=== PATIENT | female | born 1965 | race Caucasian/White ===

== ENCOUNTER 2024-12-22 10:55 | Outpatient (OUT) | payer OTHER, SELFPAY ==
--- NOTE | 2024-12-22 11:10 | CT_ITS ---
The [address] [address] Patient Name: ANABEL POTTS MRN: [id number] date: 1965 Sex: F Assigned Patient Location: CT Current Patient Location: CT Accession/Order Number: [id number] Exam Date: 12/22/2024 12:25 Report Date: 12/22/2024 12:58 At the request of: NON-STAFF PHYSICIAN Procedure: CT abdomen pelvis w con CT CHEST, ABDOMEN AND PELVIS WITH INTRAVENOUS CONTRAST: CLINICAL HISTORY: Follow-up endometrial cancer COMPARISON: None however there is an outside report of the abdomen pelvis from 05/10/2024 TECHNIQUE: Spiral images were obtained through the chest, abdomen and pelvis following oral and intravenous administration of 100 mL of Omnipaque 300. Images of the chest were reviewed using both narrow and wide window settings. This CT exam was performed using one or more following dose reduction techniques: Automated exposure control, adjustment of the mA and/or kV according to patient size, or use of iterative reconstruction technique. The heart is within normal limits for size. No pericardial effusion is present. No aortic aneurysm or dissection is seen. There are small thyroid hypodensities measuring up to 1 cm in size, predominantly on the right. There are no pathologically enlarged mediastinal, hilar or axillary lymph nodes. There is a tiny hiatal hernia. There is minor dependent atelectasis. There is minor additional linear atelectasis or scarring on the left. No consolidation, pleural effusion or pneumothorax is noted. No pulmonary nodularity is seen. The bony thorax is intact. There is minor endplate spurring at the spine. There are small calcified gallstones. No pericholecystic inflammation is present. There is a potential tiny left hepatic cyst. No other intrahepatic masses are seen. The spleen, pancreas and adrenal glands show no acute findings. There are symmetric renal nephrograms, without hydronephrosis. The abdominal aorta is normal caliber. No enlarged abdominal lymph nodes are present. Tiny supra and periumbilical hernias are seen containing fat. The small bowel loops are not distended. There is mild stool along the colon. Slight levoscoliotic curvature and minor degenerative changes are seen at the spine. Images through the pelvis show no dilated small bowel. The appendix is not identified. There is mild stool at the distal colon. There are some descending and sigmoid diverticula. No active inflammation is seen. The uterus is surgically absent. No pelvic masses or adenopathy are identified. The urinary bladder wall appears slightly thickened however this might relate to incomplete distention. No ascites is seen. CT/CT abdomen pelvis w con IMPRESSION: NO ACUTE INTRATHORACIC ABNORMALITIES. MINOR INCIDENTAL THYROID NODULARITY. CHOLELITHIASIS. NO BOWEL OR URINARY TRACT OBSTRUCTION. DIVERTICULOSIS. NO EVIDENCE OF RECURRENT OR METASTATIC DISEASE. Impression dictated by: Freda Heart M.D. 12/22/2024 12:58 PM Dictation Location: [place] [address] Electronically authenticated by: [id number] Y Date: 12/22/2024 12:58
--- NOTE | 2024-12-22 11:10 | CT_ITS ---
The [address] [address] Patient Name: ANABEL POTTS MRN: [id number] date: 1965 Sex: F Assigned Patient Location: CT Current Patient Location: CT Accession/Order Number: [id number] Exam Date: 12/22/2024 12:25 Report Date: 12/22/2024 12:58 At the request of: NON-STAFF PHYSICIAN Procedure: CT abdomen pelvis w con CT CHEST, ABDOMEN AND PELVIS WITH INTRAVENOUS CONTRAST: CLINICAL HISTORY: Follow-up endometrial cancer COMPARISON: None however there is an outside report of the abdomen pelvis from 05/10/2024 TECHNIQUE: Spiral images were obtained through the chest, abdomen and pelvis following oral and intravenous administration of 100 mL of Omnipaque 300. Images of the chest were reviewed using both narrow and wide window settings. This CT exam was performed using one or more following dose reduction techniques: Automated exposure control, adjustment of the mA and/or kV according to patient size, or use of iterative reconstruction technique. The heart is within normal limits for size. No pericardial effusion is present. No aortic aneurysm or dissection is seen. There are small thyroid hypodensities measuring up to 1 cm in size, predominantly on the right. There are no pathologically enlarged mediastinal, hilar or axillary lymph nodes. There is a tiny hiatal hernia. There is minor dependent atelectasis. There is minor additional linear atelectasis or scarring on the left. No consolidation, pleural effusion or pneumothorax is noted. No pulmonary nodularity is seen. The bony thorax is intact. There is minor endplate spurring at the spine. There are small calcified gallstones. No pericholecystic inflammation is present. There is a potential tiny left hepatic cyst. No other intrahepatic masses are seen. The spleen, pancreas and adrenal glands show no acute findings. There are symmetric renal nephrograms, without hydronephrosis. The abdominal aorta is normal caliber. No enlarged abdominal lymph nodes are present. Tiny supra and periumbilical hernias are seen containing fat. The small bowel loops are not distended. There is mild stool along the colon. Slight levoscoliotic curvature and minor degenerative changes are seen at the spine. Images through the pelvis show no dilated small bowel. The appendix is not identified. There is mild stool at the distal colon. There are some descending and sigmoid diverticula. No active inflammation is seen. The uterus is surgically absent. No pelvic masses or adenopathy are identified. The urinary bladder wall appears slightly thickened however this might relate to incomplete distention. No ascites is seen. CT/CT chest w con IMPRESSION: NO ACUTE INTRATHORACIC ABNORMALITIES. MINOR INCIDENTAL THYROID NODULARITY. CHOLELITHIASIS. NO BOWEL OR URINARY TRACT OBSTRUCTION. DIVERTICULOSIS. NO EVIDENCE OF RECURRENT OR METASTATIC DISEASE. Impression dictated by: Freda Heart M.D. 12/22/2024 12:58 PM Dictation Location: [place] [address] Electronically authenticated by: [id number] Y Date: 12/22/2024 12:58
== END 2024-12-22 10:56 | disposition home or self-care (01) ==
PROVIDERS: PCP Internal Medicine
DX: C54.1 Malignant neoplasm of endometrium (principal); K57.90 Diverticulosis of intestine, part unspecified, without perforation or abscess without bleeding
CPT/HCPCS: 71260; 74177; Q9967